=== PATIENT | male | born 1940 | race Caucasian/White ===

== ENCOUNTER 2017-07-04 22:58 | Emergency (ER) | payer OTHER ==
[~2017-07-04] VITALS: Ht 165.1 cm; Wt 70.3 kg
[2017-07-04] MEDS ORDERED: FLOMAX0.4 MG PO (23:09)
[2017-07-04] MEDS ORDERED: LISINOPRIL5 MG PO (23:10)
[2017-07-04] MEDS ORDERED: PROSCAR 5MG TABL5 M1 PO (23:10)
[2017-07-05] MEDS ORDERED: HYDROCODONE-AP1 EAC6 PO (00:16)
== END 2017-07-05 00:26 | disposition home or self-care (01) ==
LOC: ER 22:58
DX: S61.011A Laceration without foreign body of right thumb without damage to nail, initial encounter (principal); Z87.891 Personal history of nicotine dependence; W45.8XXA Other foreign body or object entering through skin, initial encounter; Y93.89 Activity, other specified; Y92.89 Other specified places as the place of occurrence of the external cause; Y99.8 Other external cause status